=== PATIENT | male | born 1945 | race Caucasian/White ===

== ENCOUNTER 2018-07-22 00:20 | Emergency (ER) | payer MEDICARE, OTHER ==
--- NOTE | 2018-07-22 00:53 | ED Physician Documentation ---
Wound Recheck - HPI Stated Complaint: bleeding from suture line on back Chief Complaint: General Adult Additional Information: intro self as [employer]. pt presents to the ED via POV from home c/o bleeding from surgical wound on his left back that started several hours ago when pt pulled dressing off. currently there is no bleeding from site. wound is well approximated with sutures in place. On 07/17/18 pt had skin cancer removed resulting in a 5 cm linear incision to back. pt denies other symptoms or complaints. pt is on elliquis for afib. pt reports he was discharged from the [place] [facility] 4 days ago for a WA that resulted in cardiac stents. Pt refuses labs at this time. pt denies current chest pain, dyspnea, syncope/near syncope, headache, dizziness, visual disturbances, n/v/d, fever, rash, sick contacts, dysuria, trauma. melena or hematochezia, change in bowel or bladder function. anxiety or depression. ROS Negative unless otherwise specified. - ROS NEURO: denies: headache, fainting, dizziness, anxiety, depression CONST: no problems. denies: recent illness EYES/ENT: none CVS/RESP: none. denies: chest pain, shortness of breath, palpitations MS/SKIN/LYMPH: denies: leg swelling, ankle swelling, rash GI/: denies: abdominal pain, problems urinating, vomiting, nausea - PAST HX Past History: cardiac disease, A-Fib, AMI, other (hyperlipidema kidney transplant cataracts) Allergies/Adverse Reactions: Allergies Allergy/AdvReac Type Severity Reaction Status Date / Time No Known Allergies Allergy Verified 07/22/18 00:49 Home Medications: Ambulatory Orders Medication Instructions Recorded Unobtainable 07/22/18 - SOCIAL HX Smoking History: non-smoker Alcohol Use: none Drug Use: none - FAMILY HX Family History: no significant history - VITAL SIGNS Vital Signs: Vital Signs Temp Pulse Resp BP Pulse Ox 98.3 F 70 18 163/65 96 07/22/18 00:20 07/22/18 00:20 07/22/18 00:20 07/22/18 00:20 07/22/18 00:20 - REVIEWED ASSESSMENTS Nursing Assessment Reviewed: Yes Vitals Reviewed: Yes Physical Exam - Physical Exam General Appearance: WD/WN Eye Exam: bilateral eye: normal inspection, PERRL, EOMI Ears, Nose, Throat: hearing grossly normal, normal ENT inspection Neck Exam: non-tender, full range of motion, normal inspection Respiratory: chest non-tender, lungs clear, normal breath sounds Cardiovascular/Chest: normal peripheral pulses, regular rate, rhythm, no edema, no gallop, no JVD, no murmur Peripheral Pulses: carotid (R): 2+, carotid (L): 2+ Gastrointestinal/Abdominal: normal bowel sounds, non tender, soft Extremity: normal range of motion, non-tender, normal inspection, no pedal edema Neurologic: no motor/sensory deficits, alert, normal mood/affect, oriented x 3 Skin Exam: normal color (approx 5 cm linear incision site with 9 sutures. clean dry intact. Sanguineous Crust over medial aspect. no s/s infection. no warmth, erythema, edema or tenderness. or other drainage), warm/dry Discharge Clincal Impression: Encounter for wound re-check Referrals: Addy Billings MD [Primary Care Provider] - 2 Days Additional Instructions: leave tefla dressing in place for 24 hours do not scrub or soak incision in water. Return if worse or signs of infection like fever, redness, pus drainage or bleeding that wont subside. Follow up with dermatology as scheduled next week. PLEASE UNDERSTAND THAT THIS IS AN EMERGENCY EVALUATION FOR YOUR COMPLAINT AND BY NATURE IS LIMITED AND NOT A SUBSTITUTE FOR ONGOING MEDICAL CARE. EVEN THOUGH TEST RESULTS AND TREATMENT PLAN WERE EXPLAINED THERE MAY BE A NEED FOR ADDITIONAL TESTING TO FULLY DETERMINE THE EXTENT OF YOUR ILLNESS/INJURY/OR CONCERN SO YOU SHOULD CONTACT AND OR ESTABLISH WITH A PRIMARY CARE PROVIDER (OR REFERRAL DOCTOR IF APPLICABLE) FOR AN APPOINTMENT SOON POSSIBLE. Condition: Good Disposition: 01 HOME, SELF-CARE Decision to Admit: NO Date of Decison to Admit: 07/22/18 Decision Time: 00:50
[2018-07-22 07:14] VITALS: BP 132/60
== END 2018-07-22 01:02 | disposition home or self-care (01) ==
LOC: ED 00:20
DX: Z48.01 Encounter for change or removal of surgical wound dressing (principal)
CPT/HCPCS: 99281